=== PATIENT | female | born 1995 | race Caucasian/White ===

== ENCOUNTER 2016-10-31 04:29 | Emergency (ER) | payer SELFPAY ==
[~2016-10-31] VITALS: Ht 167.6 cm; Wt 58.0 kg
[2016-10-31 04:30] VITALS: BP 93/44
== END 2016-10-31 05:01 | disposition left against medical advice (07) ==
LOC: EMS 04:31
DX: R10.10 Upper abdominal pain, unspecified (principal); R11.0 Nausea; R19.7 Diarrhea, unspecified; F17.210 Nicotine dependence, cigarettes, uncomplicated; Z53.21 Procedure and treatment not carried out due to patient leaving prior to being seen by health care provider